=== PATIENT | male | born 1955 | race Caucasian/White ===

== ENCOUNTER → 2017-04-11 15:23 | Outpatient (CLI) | payer MEDICARE, SELFPAY ==
--- NOTE | 2017-04-11 15:25 | RAD_ITS ---
STUDY: X-RAY - LUMBOSACRAL SPINE REASON FOR EXAM: Male, 61 years old. Low back pain. TECHNIQUE: 7 view(s) of the lumbosacral spine were obtained. Flexion and extension views obtained. COMPARISON: None FINDINGS: Markedly abnormal L4-L5 disc which shows marked loss of height severe irregularities of the endplates. Findings could represent discitis, correlate clinically. Alternatively the findings may simply be severe degenerative disease. There is 1.1 cm anterolisthesis of L4 on L5 on the neutral lateral view, which increases to 1.6 cm with both flexion and extension. There may be bilateral pars defects of L4 and L5. All other levels are within normal limits for age. Calcified plaque seen in the aorta. RAD/L/S Spine Comp/w Bending Views IMPRESSION: Marked abnormalities at L4-L5 as specified above. Electronically Signed: Jaden Alarcon MD at 16:41 EST , Service support ,
== END ==
PROVIDERS: Visit Provider Orthopaedic Surgery
DX: M54.5 Low back pain (principal)
CPT/HCPCS: 72114

== ENCOUNTER → 2017-04-21 15:41 | Outpatient (CLI) | payer MEDICARE, SELFPAY ==
--- NOTE | 2017-04-21 15:44 | MRI_ITS ---
STUDY: MRI THORACIC SPINE WITHOUT CONTRAST REASON FOR EXAM: Male, 61 years old. Mid back pain TECHNIQUE: Standardized fat and water weighted pulse sequences were obtained in the sagittal and axial planes. COMPARISON: None. FINDINGS: Normal kyphosis of the thoracic spine. There is no substantial scoliosis. T1-2, T2-3, T3-4: Normal endplates. Normal disc hydration, heights and morphology of the corresponding intervertebral discs. Normal central canal and intervertebral neural foramina at the corresponding levels. At T4-5, T5-6, T6-7, T7-8, T8-9, T9-10, T10-11, T11-12: Endplate spondylosis. Decreased disc height, dehydration and small broad-based central disc bulge. Degenerative changes of the bilateral facet joints. Normal central canal. Normal neural foramina. Normal visualized thoracic cord. Normal conus medullaris that terminates at the L1 level.. The soft tissue structures are unremarkable. MRI/Spine Thoracic (Routine) IMPRESSION: Multilevel degenerative changes as described.. Electronically Signed: Carlos Lester MD at 8:19 EST Tel , Service support ,
== END ==
PROVIDERS: Visit Provider Orthopaedic Surgery
DX: M54.14 Radiculopathy, thoracic region (principal)
CPT/HCPCS: 72146

== ENCOUNTER → 2017-09-12 14:02 | Outpatient (CLI) | payer MEDICARE, SELFPAY ==
--- NOTE | 2017-09-12 14:04 | CT_ITS ---
STUDY: CT LUMBAR SPINE WITHOUT CONTRAST REASON FOR EXAM: Male, 61 years old. Low back pain RADIATION DOSAGE (If Supplied By Facility): CTDIvol = ( 41.26 ) mGy, DLP = ( 1330.40 ) mGycm TECHNIQUE: The patient was scanned in a multi detector CT scanner. High resolution transaxial imaging was performed. Images were obtained from T12 to sacrum. Sagittal and coronal images were reconstructed. Individualized dose optimization techniques were used for this CT. COMPARISON: Lumbar spine series 04/11/2017 FINDINGS: Normal lumbar lordosis. There is no substantial scoliosis. Minimal stable loss of anterior vertebral body height T12. Normal vertebrae of the lumbar spine. L1-2: Normal endplates. Minimal loss of posterior disc height and minimal disc bulging. Normal bilateral facet joints. Mild narrowing of the central canal and bilateral lateral recesses. Normal bilateral intervertebral neural foramina. L2-3: There is mild sclerosis of the endplate, mild posterior loss of the disk height, moderate disc bulging encroaching on the anterior thecal sac, mild arthropathy of the bilateral apophyseal joints are mild/moderate ligamentous hypertrophy. There is stenosis of the spinal canal. There is mild narrowing of the neuroforamina. L3-4: Normal endplates. Normal disc height and morphology. Mild arthropathy of the bilateral facet joints. Mild stenosis of the central canal and bilateral lateral recesses. Normal bilateral intervertebral neural foramina. L4-5: Severe resorptive sclerosis of the endplates, posterior spurring, disc bulging, near ankylosis of the disc height. Arthropathy and ligamentous hypertrophy of the bilateral facet joints. Stenosis of the central canal and bilateral lateral recesses. Moderate to severe stenosis of the bilateral intervertebral neural foramina. Grade 2 anterolisthesis L4 on L5 L5-S1: Normal endplates. Mild decreased posterior disc height and broad-based disc bulging. Mild arthropathy of the bilateral facet joints. Normal central canal and bilateral lateral recesses. Mild narrowing of the bilateral intervertebral neural foramina. There is atherosclerosis of the partially visualized aorta and iliac vessels. There is bilateral perirenal stranding. CT/Spine Lumbar without Contrast IMPRESSION: Suspect congenital spinal canal stenosis is exaggerated by disc bulging and facet arthropathy. Grade 2 chronic anterolisthesis L4 on L5 with severe disc space narrowing and sclerosis which may be due to chronic degenerative changes, however a remote inflammatory process such as discitis can result in similar findings. MRI may provide additional detail. Electronically Signed: Nanda Lindsay MD at 5:56 EDT , Service support ,
== END ==
PROVIDERS: Visit Provider Orthopaedic Surgery
DX: Z01.818 Encounter for other preprocedural examination (principal); M48.062 Spinal stenosis, lumbar region with neurogenic claudication
CPT/HCPCS: 72131

== ENCOUNTER → 2017-11-08 09:12 | Outpatient (CLI) | payer MEDICARE, SELFPAY ==
--- NOTE | 2017-11-08 12:59 | NEURO ---
NCS and/or EMG Patient Report Ordering Doctor: Courtney Adrian DATE OF SERVICE: 11/08/17 Thompson Mclaughlin is a 62-year-old male presents for electrodiagnostic testing of the lower limbs. He reports lower back pain which radiates into both legs. Electrodiagnostic findings: Peroneal motor nerve demonstrates normal distal latency, amplitude and conduction velocity on the left side. Right peroneal motor response within normal limits. Normal tibial motor responses bilaterally. Mildly prolonged right sural latency. Needle EMG testing shows no evidence of denervation in any muscles tested in the lower limbs as well as lumbar paraspinals. Electrodiagnostic impression: This is an abnormal study in the lower limbs 1. 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 2. No EMG evidence for lumbosacral radiculopathy is noted. 3. No electrodiagnostic evidence for peripheral polyneuropathy. If there are any further questions, please do not hesitate to contact me
== END ==
PROVIDERS: Family Provider Registered Nurse; PCP Registered Nurse; Visit Provider Orthopaedic Surgery
DX: M54.16 Radiculopathy, lumbar region (principal)
CPT/HCPCS: 95886; 95913

== ENCOUNTER → 2018-04-24 12:32 | Outpatient (CLI) | payer MEDICARE, SELFPAY ==
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
== END ==
PROVIDERS: Family Provider Registered Nurse; PCP Registered Nurse; Referring Provider Orthopaedic Surgery; Visit Provider Orthopaedic Surgery
DX: M54.16 Radiculopathy, lumbar region (principal)
CPT/HCPCS: 72082

== ENCOUNTER → 2019-09-27 13:29 | Outpatient (CLI) | payer MEDICARE, MEDICAID, SELFPAY ==
--- NOTE | 2019-09-27 13:34 | CT_ITS ---
STUDY: LOW DOSE CT LUNG CANCER SCREENING REASON FOR EXAM: Male, 63 years old. TOBACCO USE, QUIT 6 YRS AGO, 1.5 PPD X 25 YRS. RADIATION DOSAGE (If Supplied By Facility): CTDIvol = ( 3.02 ) mGy, DLP = ( 95.53 ) mGycm TECHNIQUE: No contrast was administered. Low dose technique was utilized (average mAS-38 and kVp 120). 1.25 mm axial source images with a slice interval of 1.25-mm were reconstructed in lung windows. 2.5 mm axial source images with a slice interval of 2.5-mm were reconstructed in lung windows. 5.0 mm axial source images with a slice interval of 5.0-mm were reconstructed in soft tissue windows. Nodule measured using lung windows on PACS and/or independent workstation with automated measurement of minimum and maximum diameter. Nodule measurement reported as average diameter rounded to the nearest whole number. Growth is defined as an increase ins size of greater than 1.5 mm. COMPARISON: None. NODULES: There is a 5.5 mm x 4.6 mm spiculated nodule in the posterior-lateral aspect of the right upper lobe as seen on axial image #62 and coronal image #176. Emphysema: Hyperinflation. Emphysematous changes with bullous formation worse in the upper lobes. Calcified granuloma is seen along the anterior medial aspect of the left lower lobe as seen on axial image #71. Aorta: Atherosclerotic calcification of the aortic arch and descending thoracic aorta. Coronary arteries: Coronary artery calcification. Heart: Unremarkable. Pulmonary artery: Unremarkable. Mediastinal nodes: Unremarkable. Other chest and abdominal findings: There is a 5.3 mm x 4.4 mm sclerotic focus in the inferior central portion of the T10 vertebrae. CT/Low Dose CT Lung Screening IMPRESSION: Lung-RADS category 4B - Chest CT with or without contrast, PET/CT and/or tissue sampling can be obtained depending on the probability of malignancy and comorbidities. IMPORTANT NOTES FOR USE: ACR Lung-RADS Version 1.0 Assessment Categories Release Date: June 24, 2013 Category: Coded 0-4 bases on nodule(s) with highest degree of suspicion. Negative screen is defined as categories 1 and 2; a positive screen is defined as categories 3 and 4. Category 3 and 4A nodules that are unchanged on interval CT should be coded as category 2, and individuals returned to screening in 12 months. Category 4X: Category 3 or 4 nodules with additional imaging findings that increase the suspicion of lung cancer, such as spiculation, GGN that doubles in size in 1 year, enlarged lymph notes, etc. Category Modifiers: S (significant finding unrelated to lung cancer) and C (prior history of treated lung cancer) may be added to the 0-4 Lung-RADS Electronically Signed: Kaden Gomez, at 14:21 EDT , Service support ,
== END ==
PROVIDERS: PCP Registered Nurse; Referring Provider Internal Medicine Pulmonary Disease; Visit Provider Internal Medicine Pulmonary Disease
DX: J44.9 Chronic obstructive pulmonary disease, unspecified (principal); F17.210 Nicotine dependence, cigarettes, uncomplicated
CPT/HCPCS: G0297

== ENCOUNTER → 2019-12-23 14:37 | Outpatient (CLI) | payer MEDICARE, MEDICAID, SELFPAY ==
--- NOTE | 2019-12-23 14:41 | CT_ITS ---
STUDY: CT CHEST WITHOUT CONTRAST REASON FOR EXAM: Male, 64 years old. FOLLOW UP LUNG NODULE RADIATION DOSAGE (If Supplied By Facility): CTDIvol = ( 15.08 ) mGy, DLP = ( 528.78 ) mGycm TECHNIQUE: Transaxial imaging was performed without the administration of intravenous contrast material. Multiplanar coronal and sagittal images were reformatted. Individualized dose optimization techniques were used for this CT. COMPARISON: Comparison is made with prior study 09/27/2019 FINDINGS: Stable 5.5 mm x 4.6 m slightly spiculated nodule in the posterior lateral aspect of the right upper lobe. This abuts the minor fissure. This is seen on axial image #83 and coronal image #56. This most likely represents a focal area of scarring although a follow-up examination in 3 months is recommended. Once again, there is evidence of hyperinflation with emphysematous changes and centrilobular emphysema worse in the upper lobes. A calcified granuloma is seen in the left lower lobe. There is no demonstrated pleural abnormality. There are calcifications of the coronary arteries. Normal mediastinum. Normal hilar regions. Normal unenhanced pulmonary arteries. There is atherosclerotic calcification of the aortic arch with tortuosity and elongation of the aortic arch and descending thoracic aorta. There are multi-level degenerative changes of the thoracic spine. Stable 5.3 mm x 4.4 mm sclerotic focus in the inferior central portion of the T10 vertebrae. There is no demonstrated abnormality of the visualized upper abdomen. CT/Chest without Contrast IMPRESSION: Stable examination. Follow-up CT scan in 3 months is recommended. Electronically Signed: Kaden Gomez, at 9:35 EDT , Service support ,
== END ==
PROVIDERS: PCP Registered Nurse; Referring Provider Internal Medicine Pulmonary Disease; Visit Provider Internal Medicine Pulmonary Disease
DX: R91.1 Solitary pulmonary nodule (principal)
CPT/HCPCS: 71250

== ENCOUNTER 2020-05-05 15:16 | Outpatient (RCR) | payer MEDICARE, SELFPAY ==
[2020-05-05] MEDS: COVID-19 VACC, MRNA(PFIZER)/PF 30 MCG/0.3 ML SYRINGE IM (13:57)
[2020-05-26] MEDS: COVID-19 VACC, MRNA(PFIZER)/PF 30 MCG/0.3 ML SYRINGE IM (13:32)
== END 2020-08-04 23:59 ==
LOC: IMMUN 15:16
PROVIDERS: PCP Registered Nurse; Visit Provider Family Medicine
DX: Z23 Encounter for immunization (principal)
CPT/HCPCS: 0001A; 0002A; 91300

== ENCOUNTER → 2020-06-23 12:37 | Outpatient (CLI) | payer MEDICARE, MEDICAID, SELFPAY ==
--- NOTE | 2020-06-23 12:41 | CT_ITS ---
STUDY: CT CHEST WITHOUT CONTRAST REASON FOR EXAM: Male, 64 years old. PULM NODULE follow-up. Former smoker. History of melanoma. RADIATION DOSAGE (If Supplied By Facility): CTDIvol = ( 14.42 ) mGy, DLP = ( 518.96 ) mGycm TECHNIQUE: Transaxial imaging was performed without the administration of intravenous contrast material. Multiplanar coronal and sagittal images were reformatted. Individualized dose optimization techniques were used for this CT. COMPARISON: Comparison is made with prior study dated 09/27/2019. FINDINGS: Small benign appearing bilateral axillary lymph nodes. Stable 5.5 mm x 4.6 mm slightly irregular nodule in the posterior-lateral aspect of the right upper lobe. This abuts the minor fissure. This is unchanged. Calcified granuloma in the superior segment of the left lower lobe. Hyperinflation. Emphysematous changes worse in the upper lobes. Centrilobular emphysematous changes. There is no demonstrated pleural abnormality. There are calcifications of the coronary arteries. There are multiple small lymph nodes within the mediastinum, which are normal in size and morphology most compatible with reactive lymph hyperplasia. Normal hilar regions. Normal unenhanced pulmonary arteries. There is atherosclerotic calcification of the aortic arch with tortuosity and elongation of the aortic arch and descending thoracic aorta. There are degenerative changes of the thoracic spine. Stable 5.3 mm sclerotic focus along the inferior endplate of the T10 vertebrae. There is no demonstrated abnormality of the visualized upper abdomen. CT/Chest without Contrast IMPRESSION: Stable examination. Electronically Signed: Kaden Gomez MD at 14:50 EDT , Service support ,
== END ==
PROVIDERS: PCP Registered Nurse; Referring Provider Internal Medicine Pulmonary Disease; Visit Provider Internal Medicine Pulmonary Disease
DX: R91.1 Solitary pulmonary nodule (principal)
CPT/HCPCS: 71250

== ENCOUNTER → 2021-06-23 | Outpatient (CLI) | payer MEDICARE, MEDICAID, SELFPAY ==
--- NOTE | 2021-06-23 11:39 | CT_ITS ---
INDICATION: [id number] EXAMINATION: CT CHEST WITHOUT CONTRAST - CT Chest W/O Contrast Injection TECHNIQUE: Helically acquired images were obtained of the chest. A radiation dose optimization technique was used for this scan. IV Contrast dosage and agent: None. COMPARISON: June 23, 2020 CT scan chest without contrast FINDINGS: LUNGS, PLEURA AND LARGE AIRWAYS: The lungs are hyperinflated. There is emphysematous change throughout the lungs without focal consolidation pleural effusion pulmonary edema or pneumothorax. There is a stable calcification within the left, superior aspect of the left lower lobe, measuring 3.9 mm. There is a nodule within the right upper lobe measuring 0.69 x 4 mm stable when compared to the prior study this same level June 23, 2020 and October 23, 2019. Image 33 series 2 No pleural effusion or thickening. No pneumothorax. There are a few nonspecific subcentimeter mediastinal lymph nodes. THYROID: No thyroid lesions. HEART AND PERICARDIUM: There is borderline cardiac enlargement No pericardial effusion. CORONARY ARTERIES: Coronary artery calcification is seen. VESSELS: The aorta is partially calcified. The ascending thoracic aorta measures 3.3 x 3.1 cm. MEDIASTINUM AND TORRES: There are a few nonspecific subcentimeter mediastinal lymph nodes. Esophagus is unremarkable. No hiatal hernia. UPPER ABDOMEN: There is moderate stool in the visualized colon. BONES: Is visualized degenerative change within the thoracolumbar spine. There is a Schmorl''s node at the level of T10-T11. There is a small benign-appearing sclerotic density associated with the endplate at level T9. Stable since prior study. CT/Chest without Contrast IMPRESSION: Stable chest. Pulmonary edema chronic obstructive pulmonary disease. Stable nodule right upper lobe. Stable calcified granuloma left lower lobe. Coronary artery calcification. Electronically Signed: Marilyn Clemente MD at 0:39 EDT ,
== END | disposition home or self-care (01) ==
LOC: CT 11:38
PROVIDERS: PCP Registered Nurse; Referring Provider Internal Medicine Pulmonary Disease; Visit Provider Internal Medicine Pulmonary Disease
DX: R91.1 Solitary pulmonary nodule (principal)
CPT/HCPCS: 71250

== ENCOUNTER 2021-06-24 12:01 | Outpatient (CLI) | payer MEDICARE, MEDICAID, SELFPAY ==
[2021-06-24 12:02] VITALS: BP 116/73; PULSE 97; RESP 16; TEMP 36.6; O2SAT 98; BMI 28.8
[2021-06-24 12:21] VITALS: BMI 28.8
--- NOTE | 2021-06-24 13:26 | ED.RN ---
WRITTEN ORDER TO ADMINISTER PER DR CASTELLANOS ON FILE
== END 2021-06-24 13:38 | disposition home or self-care (01) ==
PROVIDERS: PCP Registered Nurse; Visit Provider Emergency Medicine
DX: Z00.00 Encounter for general adult medical examination without abnormal findings (principal)

== ENCOUNTER → 2022-06-23 | Outpatient (CLI) | payer MEDICARE, MEDICAID, SELFPAY ==
--- NOTE | 2022-06-23 14:13 | CT_ITS ---
STUDY: LOW DOSE CT LUNG CANCER SCREENING REASON FOR EXAM: Male, 66 years old. SOLITARY PULMONARY NODULE. Former smoker. RADIATION DOSAGE (If Supplied By Facility): CTDIvol = ( 2.39 ) mGy, DLP = ( 81.01 ) mGycm TECHNIQUE: No contrast was administered. Low dose technique was utilized (average mAS-38 and kVp 120). 1.25 mm axial source images with a slice interval of 1.25-mm were reconstructed in lung windows. 2.5 mm axial source images with a slice interval of 2.5-mm were reconstructed in lung windows. 5.0 mm axial source images with a slice interval of 5.0-mm were reconstructed in soft tissue windows. COMPARISON: Comparison is made with prior examination dated June 23, 2021. NODULES: There is a 6.1 mm calcified granuloma in the medial aspect of the superior segment of the left lower lobe as seen on axial image #74. Stable 6.9 mm noncalcified nodule in the posterior aspect of the right upper lobe abutting the right minor fissure. Emphysema: Hyperinflation. Emphysematous changes more prominent in the upper lobes. Endobronchial lesion: None Aorta: Atherosclerotic plaque formation of the aortic arch. CORONARY ARTERIES: Coronary artery calcification is seen. Heart: Unremarkable Pulmonary artery: Unremarkable Mediastinal nodes: Small mediastinal lymph nodes. Other chest and abdominal findings: CT/Low Dose CT Lung Screening IMPRESSION: Lung-RADS category 2 - Continue annual screening with LDCT in 12 months. IMPORTANT NOTES FOR USE: ACR Lung-RADS Version 1.1 Assessment Categories Release Date: 2018 Category: Coded 0-4 bases on nodule(s) with highest degree of suspicion. Negative screen is defined as categories 1 and 2; a positive screen is defined as categories 3 and 4. Category 3 and 4A nodules that are unchanged on interval CT should be coded as category 2, and individuals returned to screening in 12 months. Category 4X: Category 3 or 4 nodules with additional imaging findings that increase the suspicion of lung cancer, such as spiculation, GGN that doubles in size in 1 year, enlarged lymph notes, etc. Category Modifiers: S (significant finding unrelated to lung cancer) Electronically Signed: Kaden Gomez MD at 11:11 EDT ,
== END | disposition home or self-care (01) ==
LOC: CT 14:13
PROVIDERS: PCP Registered Nurse; Referring Provider Internal Medicine Pulmonary Disease; Visit Provider Internal Medicine Pulmonary Disease
DX: Z12.2 Encounter for screening for malignant neoplasm of respiratory organs (principal); Z87.891 Personal history of nicotine dependence
CPT/HCPCS: 71271

== ENCOUNTER → 2024-08-06 | Outpatient (CLI) | payer MEDICARE, MEDICAID, SELFPAY ==
--- NOTE | 2024-08-06 15:08 | RAD_ITS ---
PROCEDURE: KNEE 1 OR 2 VIEWS 08/06/2024 REASON FOR EXAM: KNEE PAIN TECHNIQUE: 2 view(s) of the right knee COMPARISON: None. FINDINGS: Moderate tricompartmental changes of degenerative joint disease, more prominent in the medial tibiofemoral compartment. No fracture or dislocation is seen. No lytic or blastic bone lesion is noted. Minimal suprapatellar knee joint effusion. RAD/Knee 1 or 2 Views IMPRESSION: Degenerative joint disease. [facility]
--- NOTE | 2024-08-06 15:09 | RAD_ITS ---
PROCEDURE: KNEE 1 OR 2 VIEWS 08/06/2024 REASON FOR EXAM: KNEE PAIN TECHNIQUE: 2 view(s) of the left knee COMPARISON: None. FINDINGS: Mild tricompartmental changes of degenerative joint disease, more prominent in the medial tibiofemoral compartment. Mild suprapatellar knee joint effusion. No fracture or dislocation is seen. RAD/Knee 1 or 2 Views IMPRESSION: Degenerative joint disease. Reading [facility]
== END | disposition home or self-care (01) ==
LOC: RAD 15:07
PROVIDERS: PCP Registered Nurse; Referring Provider Anesthesiology Pain Medicine; Visit Provider Anesthesiology Pain Medicine
DX: M25.561 Pain in right knee (principal); M25.562 Pain in left knee
CPT/HCPCS: 73560

== ENCOUNTER → 2024-10-07 | Outpatient (CLI) | payer MEDICARE, MEDICAID, SELFPAY ==
--- NOTE | 2024-10-07 09:05 | MRI_ITS ---
PROCEDURE: SPINE LUMBAR (ROUTINE) 10/07/2024 REASON FOR EXAM: LUMBAR RADICULOPATHY TECHNIQUE: SPINE LUMBAR (ROUTINE) COMPARISON: None FINDINGS: Vertebrae: Minimal bone marrow edema is seen of the anterior superior aspect of the L3 vertebral body. Severe endplate irregularity is seen in the opposing endplates of L4 and L5. There is bone loss at the opposing endplates with a least 25 to 30% height loss involving each of the vertebral bodies. Additionally, there is grade 1 anterolisthesis of L4 on L5 with associated bilateral pars defects. Sclerotic changes are seen in the opposing endplates and there is no significant bone marrow edema. Alignment: Mild straightening of the lumbar spine above L4. Grade 1 anterolisthesis L4 on L5 from pars defects. Conus Medullaris: Conus medullaris terminates at L1. There is no abnormal cord signal. There is clumping of nerve roots from extradural defect at L2/3 described below. L1-2: Minimal, diffuse disc bulge. Moderate thickening of the ligamentum flavum. No central stenosis or exit foraminal narrowing. L2-3: Mild loss of disc height. Diffuse disc osteophyte protrusion is seen along with [id number] thickening of ligamentum flavum. [id number] facet hypertrophy is shown with small facet joint effusions. There is stenosis of the central canal and encroachment on the canal from a combination of the aforementioned. Much of the surrounding CSF is effaced and there is stenosis to 6.6 mm AP. Fat is seen around the exiting nerve roots. L3-4: Mild, diffuse disc bulge. Moderate thickening of ligamentum flavum. Mild facet hypertrophy. No central stenosis or exit foraminal narrowing. L4-5: Anterolisthesis L4 on L5. No substantive disc material remains as the endplates of L4 and L5 are markedly irregular and there is volume loss at L4 and L5 described above. Osteophytic ridge is seen along with some uncovering of the posterior superior L5 vertebral body. Moderate thickening of ligamentum flavum is present. Severe compromise of the exit foramina primarily from loss of vertebral body height in the osteophytic ridge. Correlate with bilateral L4 radiculopathy. L5-S1: Mild, diffuse disc bulge. Small posterior annular defect at the midline. Mild thickening of ligamentum flavum. Mild facet hypertrophy. Bilateral exit foraminal narrowing from disc and facet disease. Correlate with bilateral L5 radiculopathy. Sacrum: Partially imaged but otherwise unremarkable. MRI/Spine Lumbar (Routine) IMPRESSION: 1. Straightening of the lumbar lordosis above L4. Grade 1 anterolisthesis of L4 on L5 from bilateral pars defects. Vertebral body height loss of the proximally 25-30% at both the L4 and L5 vertebral adalgisa s. No bone marrow edema present at this level. There is significant compromise of the exit foramina at this level. Correlate with L4 radiculopathy bilaterally. 2. Degenerative disc disease outlined above particularly at L2/3 where there i s also central stenosis. Reading Location: [id number]
== END | disposition home or self-care (01) ==
LOC: OPMRI 07:55
PROVIDERS: PCP Registered Nurse; Referring Provider Anesthesiology Pain Medicine; Visit Provider Anesthesiology Pain Medicine
DX: M54.16 Radiculopathy, lumbar region (principal)
CPT/HCPCS: 72148

== ENCOUNTER → 2025-02-13 | Outpatient (CLI) | payer MEDICARE, MEDICAID, SELFPAY ==
[2025-02-13 20:04] LABS: Barbiturate Urine NEGATIVE (< 200 ng/mL); Benzodiazepine Urine NEGATIVE (< 200 ng/mL); PCP Urine NEGATIVE (< 25 ng/mL); THC Urine NEGATIVE (< 50 ng/mL)
== END | disposition home or self-care (01) ==
LOC: LAB 17:20
PROVIDERS: PCP Registered Nurse; Referring Provider Anesthesiology Pain Medicine; Visit Provider Anesthesiology Pain Medicine
DX: F11.20 Opioid dependence, uncomplicated (principal)
CPT/HCPCS: 36415; 80307